=== PATIENT | male | born 1965 | race African-American/Black ===

== ENCOUNTER 2018-03-17 08:21 | Emergency (ER) | payer OTHER ==
[2018-03-17] MEDS ORDERED: Furosemide 40 MG/4 ML VIAL ONE (08:39)
[2018-03-17] MEDS ORDERED: Nitroglycerin 0.4 MG TAB (25 Tab Bottle) ONE (08:39)
[2018-03-17] MEDS ORDERED: Nitroglycerin 2% Ointment 1 INCH/1 GM Packet ONE (08:39)
[2018-03-17 08:49] LABS: #Basophils 0.1 thou/uL (0.0-0.2); #Eosinphils 0.3 thou/uL (0.0-0.7); #Lymphocytes 2.3 thou/uL (1.20-3.40); #Monocytes 0.6 thou/uL (0.11-0.59); #Neutrophils 7.1 thou/uL (1.40-6.50); %Basophils 0.7 % (0.0-1.0); %Eosinophils 2.6 % (0.0-10.0); %Lymphocytes 22.5 % (21.0-51.0); %Neutrophils 68.1 % (42.0-75.0); Hemoglobin 13.6 g/dL (14.0-18.0); Mean Corpuscular HGB CONC 31.3 g/dL (32.0-36.0); Mean Corpuscular Hemoglobin 25.2 pg (27.0-31.0); Mean Corpuscular Volume 80.4 fL (78.0-98.0); Mean Platelet Volume 10.1 fL (7.4-10.4); Platelet Count 181 thou/uL (130-400); RBC Distribution Width 15.6 % (11.5-14.5); Red Blood Cell (RBC) Count 5.41 mill/uL (4.70-6.10); White Blood Cell (WBC) Count 10.4 thou/uL (4.8-10.8)
[2018-03-17 09:09] LABS: ALT (SGPT) 17 U/L (8-55); AST (SGOT) 16 U/L (5-34); Albumin 3.6 g/dL (3.5-5.0); Alkaline Phosphatase 133 U/L (40-150); Anion Gap 11 mmol/L (10-20); BUN (Urea Nitrogen) 17 mg/dL (8.4-25.7); Bilirubin, Total 0.7 mg/dL (0.2-1.2); CK (CPK) 88 U/L (30-200); Calc. Creatinine Clearance 0 mL/min (70-130); Carbon Dioxide 27 mmol/L (22-29); Chloride 106 mmol/L (98-107); Estimated GFR-MDRD 61; Globulin 3.9 g/dL (2.4-3.5); Glucose 107 mg/dL (70-105); Lipase 17 U/L (8-78); Potassium 3.6 mmol/L (3.5-5.1); Protein, Total 7.5 g/dL (6.0-8.3); Sodium 140 mmol/L (136-145)
[2018-03-17 09:10] LABS: CKMB 1.4 ng/mL (0-6.6); Troponin I 0.027 ng/mL (< 0.028)
--- NOTE | 2018-03-17 10:08 | RAD ---
FRONTAL VIEW CHEST: COMPARISON: No prior comparison. INDICATION: Dyspnea. FINDINGS: Cardiac silhouette is enlarged and there is prominence of pulmonary vasculature. There is a left sub clavian approach AICD in place. Interstitial prominence of each lung is present. No significant eff usion or discrete pneumothorax. IMPRESSION: Findings most consistent with decompensated congestive heart failure. Recommend continued imaging fo llowup. POS: [facility]
== END 2018-03-17 10:21 | disposition home or self-care (01) ==
LOC: ERS 08:21
DX: I11.0 Hypertensive heart disease with heart failure (principal); I50.9 Heart failure, unspecified; M10.9 Gout, unspecified; I48.91 Unspecified atrial fibrillation; E78.5 Hyperlipidemia, unspecified; Z79.899 Other long term (current) drug therapy; Z79.891 Long term (current) use of opiate analgesic
CPT/HCPCS: 71045; 80053; 82553; 83690; 83880; 84484; 85025; 93005; 96374; J1940

== ENCOUNTER 2018-03-18 08:43 | Inpatient (IN) | payer OTHER ==
[2018-03-18] MEDS ORDERED: Furosemide 40 MG/4 ML VIAL ONE (09:04)
[2018-03-18] MEDS ORDERED: Nitroglycerin 2% Ointment 1 INCH/1 GM Packet ONE (09:04)
[2018-03-18] MEDS ORDERED: Nitroglycerin 0.4 MG TAB (25 Tab Bottle) ONE (09:04)
[2018-03-18 09:22] LABS: #Eosinphils 0.2 thou/uL (0.0-0.7); #Monocytes 0.5 thou/uL (0.11-0.59); #Neutrophils 6.9 thou/uL (1.40-6.50); %Basophils 0.5 % (0.0-1.0); %Eosinophils 2.3 % (0.0-10.0); %Lymphocytes 20.9 % (21.0-51.0); %Monocytes 5.5 % (0.0-10.0); %Neutrophils 70.7 % (42.0-75.0); Hemoglobin 13.1 g/dL (14.0-18.0); Mean Corpuscular HGB CONC 31.3 g/dL (32.0-36.0); Mean Corpuscular Hemoglobin 25.2 pg (27.0-31.0); Mean Corpuscular Volume 80.4 fL (78.0-98.0); Platelet Count 188 thou/uL (130-400); RBC Distribution Width 15.6 % (11.5-14.5); Red Blood Cell (RBC) Count 5.19 mill/uL (4.70-6.10); White Blood Cell (WBC) Count 9.7 thou/uL (4.8-10.8)
--- NOTE | 2018-03-18 09:31 | RAD ---
FRONTAL VIEW CHEST: COMPARISON: 03/17/18. INDICATION: Short of breath. FINDINGS: There remains prominence of the cardiac silhouette and pulmonary vasculature. Left-sided AICD is aga in seen. Patchy bilateral perihilar opacities are present. There is no significant effusion or disc rete pneumothorax. IMPRESSION: Findings indicate decompensated congestive heart failure with bilateral edema. Recommend continued i maging followup. POS: [facility]
[2018-03-18 09:40] LABS: ALT (SGPT) 15 U/L (8-55); AST (SGOT) 14 U/L (5-34); Albumin 3.3 g/dL (3.5-5.0); Alkaline Phosphatase 111 U/L (40-150); Anion Gap 9 mmol/L (10-20); BUN (Urea Nitrogen) 17 mg/dL (8.4-25.7); Bilirubin, Total 0.8 mg/dL (0.2-1.2); Calc. Creatinine Clearance 0 mL/min (70-130); Calcium 8.8 mg/dL (7.8-10.44); Carbon Dioxide 28 mmol/L (22-29); Chloride 105 mmol/L (98-107); Estimated GFR-MDRD 68; Globulin 3.6 g/dL (2.4-3.5); Glucose 106 mg/dL (70-105); Potassium 3.8 mmol/L (3.5-5.1); Protein, Total 6.9 g/dL (6.0-8.3); Sodium 138 mmol/L (136-145)
[2018-03-18 09:45] LABS: CKMB 1.2 ng/mL (0-6.6); Troponin I 0.029 ng/mL (< 0.028)
--- NOTE | 2018-03-18 11:53 | PDOC.FPRHP ---
- History of Present Illness Chief Complaint: Shortness of breath History of Present Illness: Mr. Silverman is a 52 year old male presenting to the ER from out of town with acute onset shortness of breath for the past two days. He says that the past two nights he has been awoken with shortness of breath, coughing, and wheezing. This has never happened to him before, it is worse when he lies down and better when he is sitting or standing. He has been taking his medications as directed. He also reports an episode of wrist pain/swelling two days ago, that has mostly resolved with some residual pain. He has a history of congestive heart failure diagnosed in 1999 which he is followed by a yard operator for. ED Course: CXR in ER shows b/l edema and cephalization He was given 40 mg lasix, nitro 2% gel, and sL .4 mg - History PMHx:gout, atrial fibrillation, CAD x4 stents, [place] in 1999, Stroke in 2009 w/ residual right sided weakness, hypertension, congestive heart failure diagnosed in 1999 PSHx: cardiac cath in 1999, pacemaker/defibrillator FHx:cancer in mother Social: neg TACD - Review of Systems General: denies: fever/chills, night sweats Eyes: denies: vision changes ENT: denies: nasal congestion, rhinorrhea Respiratory: reports: cough, shortness of breath, exercise intolerance. denies : congestion Cardiovascular: reports: edema, orthopnea. denies: chest pain, palpitation Gastrointestinal: denies: nausea, vomiting, diarrhea, constipation, abdominal pain Genitourinary: denies: dysuria, polyuria Skin: denies: rashes, lesions Musculoskeletal: denies: pain, tenderness, stiffness, swelling Neurological: denies: numbness, syncope, weakness - Vital signs BP: [174/119] HR: [97] RR: [21] Tmax: [98] Pox: [96]% on [RA] Wt: [131 kg] - Physical Exam Constitutional: awake, alert and oriented, other (labored breathing) HEENT: normocephalic and atraumatic, grossly normal vision, MMM Neck: supple, no bruits Chest: no-tender to palpation, no lesions Heart: normal S1/S2, no murmurs/rubs/gallops, pulses present, other ( irregularly irregular rhythm) Lungs: no respiratory distress, no retractions, other (b/l ronchi and wheeze, increased work of breathing) Abdomen: soft, non-tender Musculoskeletal: normal structure, ROM grossly normal Neurological: no focal deficit, normal sensation Skin: no rash/lesions, no jaundice Heme/Lymphatic: no unusual bruising or bleeding, no purpura Psychiatric: normal mood and affect, intact recent and remote memory FMR H&P: Results - Labs Result Diagrams: 03/18/18 09:04 03/18/18 09:04 Lab results: WBC 9.7 thou/uL (4.8-10.8) 03/18/18 09:04 Hgb 13.1 g/dL (14.0-18.0) L 03/18/18 09:04 Hct 41.8 % (42.0-52.0) L 03/18/18 09:04 MCV 80.4 fL (78.0-98.0) 03/18/18 09:04 Plt Count 188 thou/uL (130-400) 03/18/18 09:04 Neutrophils % 70.7 % (42.0-75.0) 03/18/18 09:04 Sodium 138 mmol/L (136-145) 03/18/18 09:04 Potassium 3.8 mmol/L (3.5-5.1) 03/18/18 09:04 Chloride 105 mmol/L (98-107) 03/18/18 09:04 Carbon Dioxide 28 mmol/L (22-29) 03/18/18 09:04 BUN 17 mg/dL (8.4-25.7) 03/18/18 09:04 Creatinine 1.34 mg/dL (0.6-1.3) H 03/18/18 09:04 Glucose 106 mg/dL (70-105) H 03/18/18 09:04 Calcium 8.8 mg/dL (7.8-10.44) 03/18/18 09:04 Total Bilirubin 0.8 mg/dL (0.2-1.2) 03/18/18 09:04 AST 14 U/L (5-34) 03/18/18 09:04 ALT 15 U/L (8-55) 03/18/18 09:04 Alkaline Phosphatase 111 U/L (40-150) 07/08/18 09:04 CK-MB (CK-2) 1.2 ng/mL (0-6.6) 03/18/18 09:04 B-Natriuretic Peptide 613.5 pg/mL (0-100) H 03/18/18 09:04 Serum Total Protein 6.9 g/dL (6.0-8.3) 03/18/18 09:04 Albumin 3.3 g/dL (3.5-5.0) L 03/18/18 09:04 - EKG Interpretation EKG: electronic pacemaker FMR H&P: A/P - Problem List (1) Acute exacerbation of CHF (congestive heart failure) Current Visit: Yes Status: Acute Code(s): I50.9 - HEART FAILURE, UNSPECIFIED (2) Hypertension Current Visit: Yes Status: Acute Code(s): I10 - ESSENTIAL (PRIMARY) HYPERTENSION (3) Atrial fibrillation Current Visit: Yes Status: Acute Code(s): I48.91 - UNSPECIFIED ATRIAL FIBRILLATION (4) Gout Current Visit: Yes Status: Acute Code(s): M10.9 - GOUT, UNSPECIFIED - Plan 1. Acute exacerbation of congestive heart failure - Due to increased PO fluid intake recently - EKG: electronic paced - CXR: b/l edema, repeat in AM - BNP: 631, repeat in AM - Lasix 40 mg, no salt, fluid restriction 1500 ml - TTE - obtain records from cardiology in [place] [id number] 2. Hypertension - continue home meds - consider adding hydralazine 5 mg for systolic over 170 3. Atrial fibrillation - continue home meds - monitor on telemetry 4. Gout - resolved - continue home meds FMR H&P: Upper Level - Pertinent history 52 yo AAM with PMH Heart failure with presumed reduced EF, s/p AICD/Pacemaker placement, HTN, and gout. Presents with 2-3 day hx of progressively worsening PND. [facility] and has not been following fluid restriction. States he his followed by yard operator in [facility]. Last TTE was 1 year ago. He was seen in ER last night for same problem and given lasix before discharging. States his gout flair is resolving. ER: Labs, EKG, CXR, Nitro SL, Nitro paste, ASA, labetalol. - Pertinent findings BP elevated 150-170s/ 90-110s. Otherwise WNL. GEN: NAD but becomes tachypnic with talking CV: Distant heart sounds. irregularly irregular. pulses present. no murmur or gallop noted. PULM: CTA- B labored breathing when speaking Extremities: No edema. no cyanosis. - Plan Date/Time: 03/18/18 1150 I, Ernesto Bustos MD, have evaluated this patient and agree with findings/plan as outlined by internet technology manager resident. Pertinent changes/additions are listed here. 1. Acute HF exacerbation: Lasix 40 mg BID, fluid restrict 1500 mL, daily weights , 2. Presumed HF with reduced EF: Obtain records from primary yard operator, consider cardiology consult if significant findings on evaluation, repeat TTE, resume home meds 3. Chronic A-fib: home meds, eliquis 4. HTN: home meds, PRN labetalol and hydralazine 5. Presumed CKD3: monitor BMP 6. s/p AICD/Pacemaker: See #1 and #2 7. Hx Gout: consider treatment if flair worsens with lasix. 8. Diet: HH, Low sodium fluid restrict, 9. Activity: Walking program 10. CODE: FULL 11. PPx: loly.
[2018-03-18] MEDS ORDERED: Labetalol HCl 100 MG/20 ML VIAL ONE (11:55)
[2018-03-18] MEDS ORDERED: Acetaminophen 325 MG TAB PO PRN (12:24)
[2018-03-18] MEDS ORDERED: Ondansetron ODT 4 MG TAB PO PRN (12:24)
[2018-03-18] MEDS ORDERED: hydrALAZINE 20 MG/ML VIAL SLOW IVP PRN (13:32)
[2018-03-18 13:41] VITALS: BMI 41.0
[2018-03-18] MEDS: Furosemide 40 MG TAB PO SCH (13:56)
[2018-03-18] MEDS ORDERED: Docusate 100 MG CAP PO PRN (15:10)
[2018-03-18 15:44] LABS: Troponin I 0.028 ng/mL (< 0.028)
[2018-03-18] MEDS: Carvedilol 25 MG TAB PO SCH (19:58)
[2018-03-18] MEDS: Apixaban 5 MG TAB PO SCH (19:59)
[2018-03-18] MEDS: Atorvastatin Calcium 40 MG TAB PO SCH (19:59)
[2018-03-18] MEDS: Docusate 100 MG CAP PO SCH (19:59)
[2018-03-18] MEDS: Tamsulosin HCl 0.4 MG CAP PO SCH (19:59)
[2018-03-18] MEDS ORDERED: Carvedilol 25 MG TAB PO SCH (21:00)
[2018-03-18 21:56] LABS: Hemoglobin 13.3 g/dL (14.0-18.0); Platelet Count 177 thou/uL (130-400)
[2018-03-19 04:49] LABS: Anion Gap 12 mmol/L (10-20); BUN (Urea Nitrogen) 18 mg/dL (8.4-25.7); Calc. Creatinine Clearance 154 mL/min (70-130); Calcium 8.9 mg/dL (7.8-10.44); Carbon Dioxide 25 mmol/L (22-29); Chloride 106 mmol/L (98-107); Estimated GFR-MDRD 85; Glucose 107 mg/dL (70-105); Potassium 3.4 mmol/L (3.5-5.1); Sodium 140 mmol/L (136-145); Uric Acid 9.4 mg/dL (3.5-7.2)
[2018-03-19 05:42] LABS: Digoxin Less than 0.15 ng/mL (0.8-2.0)
[2018-03-19] MEDS ORDERED: Potassium Chloride 20 MEQ TAB PO SCH (06:30)
[2018-03-19] MEDS: Colchicine 0.6 MG TAB PO SCH (07:48)
[2018-03-19] MEDS: Losartan 25 MG TAB PO SCH (07:48)
[2018-03-19] MEDS: Carvedilol 25 MG TAB PO SCH ×2 (07:48→20:58)
[2018-03-19] MEDS: Allopurinol 100 MG TAB PO SCH (07:48)
[2018-03-19] MEDS: valACYclovir 500 MG TAB PO SCH (07:48)
[2018-03-19] MEDS: Apixaban 5 MG TAB PO SCH ×2 (07:49→20:57)
[2018-03-19] MEDS: Digoxin 0.25 MG TAB PO SCH (07:49)
[2018-03-19] MEDS: Docusate 100 MG CAP PO SCH ×2 (07:49→20:58)
[2018-03-19] MEDS: Furosemide 40 MG TAB PO SCH (07:49)
[2018-03-19] MEDS ORDERED: Non-Formulary Item 1 EACH (Losartan Potassium [Cozaar] 50 MG) PO SCH (09:00)
[2018-03-19] MEDS ORDERED: Amlodipine 5 MG TAB PO SCH ×2 (09:00→13:00)
[2018-03-19] MEDS ORDERED: Ergocalciferol 1.25 MG(50,000 UNITS) CAP PO SCH (09:00)
--- NOTE | 2018-03-19 09:05 | PDOC.FM ---
- Subjective Subjective: Patient reports that he is feeling much better this AM. He reports that his breathing has improved where now he only gets SOB when he starts moving around, but he is able to lay flat now without problems breathing. He denies any chest pain. - Objective MAR Reviewed: Yes Vital Signs & Weight: Vital Signs (12 hours) Temp Pulse Resp BP Pulse Ox 03/19/18 08:00 98.2 F 99 18 96 03/19/18 07:49 99 03/19/18 07:25 98.2 F 99 18 151/92 H 96 03/19/18 04:00 98.4 F 95 16 164/94 H 93 L 03/19/18 00:00 97.6 F 100 14 141/78 H 94 L Weight Weight 136.531 kg I&O: 03/18/18 03/19/18 03/20/18 06:59 06:59 06:59 Intake Total 600 Output Total 550 Balance 50 Result Diagrams: 03/18/18 21:46 03/19/18 04:08 <Rosalee Soto - Last Filed: 03/19/18 09:03> - Objective Vital Signs & Weight: Vital Signs (12 hours) Temp Pulse Pulse Pulse Resp BP BP 03/19/18 13:31 88 184/109 H 03/19/18 11:47 97.9 F 92 18 03/19/18 09:13 86 94 140/80 03/19/18 08:00 98.2 F 99 18 03/19/18 07:49 99 03/19/18 07:25 98.2 F 99 18 03/19/18 04:00 98.4 F 95 16 BP BP BP Pulse Ox Pulse Ox Pulse Ox 03/19/18 13:31 03/19/18 11:47 158/100 H 97 03/19/18 09:13 157/91 H 95 94 L 03/19/18 08:00 96 03/19/18 07:49 03/19/18 07:25 151/92 H 96 03/19/18 04:00 164/94 H 93 L Weight Weight 136.531 kg I&O: 03/18/18 03/19/18 03/20/18 06:59 06:59 06:59 Intake Total 600 Output Total 550 Balance 50 Result Diagrams: 03/18/18 21:46 03/19/18 04:08 <Silvino Pretty - Last Filed: 03/19/18 13:53> Phys Exam - Physical Examination Constitutional: NAD HEENT: moist MMs, sclera anicteric Respiratory: no wheezing, no rales, no rhonchi, clear to auscultation bilateral Cardiovascular: RRR, no significant murmur, no rub Gastrointestinal: soft, non-tender, no distention, positive bowel sounds Musculoskeletal: no edema, pulses present Neurological: non-focal, moves all 4 limbs Psychiatric: normal affect, A&O x 3 Skin: normal turgor, cap refill <2 seconds <Rosalee Soto - Last Filed: 03/19/18 09:03> Dx/Plan (1) Acute on chronic HFrEF (heart failure with reduced ejection fraction) Code(s): I50.23 - ACUTE ON CHRONIC SYSTOLIC (CONGESTIVE) HEART FAILURE Status : Acute (2) Atrial fibrillation Code(s): I48.91 - UNSPECIFIED ATRIAL FIBRILLATION Status: Acute QualifierTitle: Atrial fibrillation type: paroxysmal Qualified Code(s): I48.0 - Paroxysmal atrial fibrillation (3) Gout Code(s): M10.9 - GOUT, UNSPECIFIED Status: Acute QualifierTitle: Gout site: unspecified site Chronicity: chronic (4) Hypertension Code(s): I10 - ESSENTIAL (PRIMARY) HYPERTENSION Status: Acute QualifierTitle: Hypertension type: essential hypertension Qualified Code( s): I10 - Essential (primary) hypertension - Plan Plan: Acute on Chronic HFrEF exacerbation Likely due to increased PO fluid intake recently. CXR: b/l edema, repeat in AM. BNP: 631, 340. Echo showed EF 20-25% - Lasix 40 - fluid restriction 1500 ml - Strict I/O's - obtain records from cardiology in [place] Hypertension BP's have been elevated to 140s/70s-170s/100s - continue home losartan and carvedilol - consider increasing losartan vs adding CCB Atrial fibrillation - continue home meds - monitor on telemetry Gout - resolved - continue home meds <Rosalee Soto - Last Filed: 03/19/18 09:03> Attending Addendum - Attending Addendum Date/Time: 03/19/18 1350 I personally evaluated the patient and discussed the management with Dr. Soto I agree with the History, Examination, Assessment and Plan documented above with any addition or exceptions noted below. Need to get back to dry weight Heart rate controlled. <Silvino Pretty - Last Filed: 03/19/18 13:53>
[2018-03-19] MEDS: Furosemide 40 MG/4 ML VIAL SLOW IVP SCH (13:30)
[2018-03-19] MEDS: Tamsulosin HCl 0.4 MG CAP PO SCH (20:57)
[2018-03-19] MEDS: Atorvastatin Calcium 40 MG TAB PO SCH (20:58)
[2018-03-20] MEDS ORDERED: Melatonin 3 MG TAB PO SCH (01:45)
[2018-03-20 05:16] LABS: Anion Gap 14 mmol/L (10-20); BUN (Urea Nitrogen) 19 mg/dL (8.4-25.7); Calc. Creatinine Clearance 148 mL/min (70-130); Calcium 9.2 mg/dL (7.8-10.44); Carbon Dioxide 24 mmol/L (22-29); Chloride 103 mmol/L (98-107); Estimated GFR-MDRD 82; Glucose 96 mg/dL (70-105); Potassium 3.6 mmol/L (3.5-5.1); Sodium 137 mmol/L (136-145)
[2018-03-20] MEDS: Furosemide 40 MG/4 ML VIAL SLOW IVP SCH ×2 (05:48→13:23)
--- NOTE | 2018-03-20 08:22 | PDOC.FM ---
- Subjective Subjective: Patient reports that his breathing is much improved. He says he was able to walk in the hallway around the loop yesterday and when he got back to his room he wasn't winded at all. The patient reports being able to sleep laying down without any SOB. He denies any swelling in his legs. He reports adherence to the fluid restriction and that he has been urinating frequently after getting the lasix. - Objective MAR Reviewed: Yes Vital Signs & Weight: Vital Signs (12 hours) Temp Pulse Resp BP Pulse Ox 03/20/18 04:00 98.2 F 97 20 141/94 H 95 03/20/18 00:00 97.3 F L 99 20 138/88 96 03/19/18 20:58 98.9 F 90 18 158/100 H 95 Weight Weight 135.579 kg I&O: 03/19/18 03/20/18 03/21/18 06:59 06:59 06:59 Intake Total 600 1440 Output Total 550 3650 Balance 50 -2210 Result Diagrams: 03/18/18 21:46 03/20/18 03:52 <Rosalee Soto - Last Filed: 03/20/18 08:21> - Objective Vital Signs & Weight: Vital Signs (12 hours) Temp Pulse Resp BP BP Pulse Ox 03/20/18 11:13 97.6 F 95 18 122/82 93 L 03/20/18 08:31 97 03/20/18 08:30 97 03/20/18 08:00 97.0 F L 97 16 148/76 H 92 L 03/20/18 04:00 98.2 F 97 20 141/94 H 95 Weight Weight 135.579 kg I&O: 03/19/18 03/20/18 03/21/18 06:59 06:59 06:59 Intake Total 600 1440 Output Total 550 3650 Balance 50 -2210 Result Diagrams: 03/18/18 21:46 03/20/18 03:52 <Jai Guthrie - Last Filed: 03/20/18 12:44> Phys Exam - Physical Examination Constitutional: NAD HEENT: moist MMs Respiratory: no wheezing, no rales, no rhonchi, clear to auscultation bilateral Cardiovascular: RRR, no significant murmur, no rub Gastrointestinal: soft, non-tender, no distention, positive bowel sounds Musculoskeletal: no edema, pulses present Neurological: non-focal, moves all 4 limbs Psychiatric: normal affect, A&O x 3 Skin: normal turgor, cap refill <2 seconds <Rosalee Soto - Last Filed: 03/20/18 08:21> Dx/Plan (1) Acute on chronic HFrEF (heart failure with reduced ejection fraction) Code(s): I50.23 - ACUTE ON CHRONIC SYSTOLIC (CONGESTIVE) HEART FAILURE Status : Acute (2) Atrial fibrillation Code(s): I48.91 - UNSPECIFIED ATRIAL FIBRILLATION Status: Acute QualifierTitle: Atrial fibrillation type: paroxysmal Qualified Code(s): I48.0 - Paroxysmal atrial fibrillation (3) Gout Code(s): M10.9 - GOUT, UNSPECIFIED Status: Acute QualifierTitle: Gout site: unspecified site Chronicity: chronic (4) Hypertension Code(s): I10 - ESSENTIAL (PRIMARY) HYPERTENSION Status: Acute QualifierTitle: Hypertension type: essential hypertension Qualified Code( s): I10 - Essential (primary) hypertension - Plan Plan: Acute on Chronic HFrEF exacerbation Likely due to increased PO fluid intake recently over 14 of March. CXR: b/l edema. BNP: 631, 340. Echo showed EF 20-25% Tele has showed v-paced with HR in 80s-90s overnight - Lasix 40mg IV BID - fluid restriction 1500 ml - Strict I/O's, daily weights - obtain records from cardiology in [place] - Cont home carvedilol and losartan Hypertension BP's have been elevated to 140s/80s-180s/100s - continue home losartan and carvedilol - Added amlodipine for better control Atrial fibrillation - continue home meds - monitor on telemetry Gout - resolved - continue home meds <Rosalee Soto - Last Filed: 03/20/18 08:21> Attending Addendum - Attending Addendum Date/Time: 03/20/18 1243 I personally evaluated the patient and discussed the management with Dr. Soto. I agree with and repeated the History, Examination, Assessment and Plan documented above with any addition or exceptions noted below. Pt improving. Acute on chronic HFrEF - continue diuresis. Plan to add aldactone after extensive discussion today. Monitor BP. Hopeful d/c tomorrow. <Jai Guthrie - Last Filed: 03/20/18 12:44>
[2018-03-20] MEDS: Docusate 100 MG CAP PO SCH ×2 (08:30→20:30)
[2018-03-20] MEDS: Amlodipine 5 MG TAB PO SCH (08:30)
[2018-03-20] MEDS: Allopurinol 100 MG TAB PO SCH (08:30)
[2018-03-20] MEDS: Colchicine 0.6 MG TAB PO SCH (08:30)
[2018-03-20] MEDS: Carvedilol 25 MG TAB PO SCH ×2 (08:31→20:30)
[2018-03-20] MEDS: Digoxin 0.25 MG TAB PO SCH (08:31)
[2018-03-20] MEDS: Losartan 25 MG TAB PO SCH (08:31)
[2018-03-20] MEDS: Apixaban 5 MG TAB PO SCH ×2 (08:31→20:30)
[2018-03-20] MEDS: valACYclovir 500 MG TAB PO SCH (08:35)
--- NOTE | 2018-03-20 11:55 | PQF ---
CLINICAL DOCUMENTATION IMPROVEMENT CLARIFICATION FORM: ICD-10 Updated PLEASE DO AN ADDENDUM TO THE PROGRESS NOTE WITH ANY DOCUMENTATION UPDATES OR ADDITIONS AND CARRY THROUGH TO DC SUMMARY. THANK YOU. DATE: 03/20 ATTN: DR. ABUNDIO AYOUB/ DR. EMILY AGUIAR Please exercise your independent, professional judgment in responding to the clarification form. Clinical indicators are provided on the bottom of this form for your review. Please check appropriate box(s): BMI > 40 with associated diagnosis of: (check one) [ x] Morbid (Severe) Obesity [x ] Due to excess calories [ ] Obesity [ ] Other diagnosis [ ] Unable to determine For continuity of documentation, please document condition throughout progress notes and discharge summary. Thank You. BMI < 19 Under weight 19 - 24.9 Healthy 25.0 - 29.9 Slightly Overweight 30.0 - 34.9 Obese 35.0 - 39.9 Severely Obese 40.0 and Over Morbidly Obese CLINICAL INDICATORS - SIGNS / SYMPTOMS / LABS BMI: 40.5 RISK FACTORS: HTN SYSTOLIC CHF HX CVA W/R SIDED WEAKNESS TREATMENTS: HH DIET W/1500 ML/DAY FLUID RESTRICTION CARDIAC REHAB EVALUATION THANK YOU! Jaye (This form is maintained as a part of the permanent medical record) 2014 [employer]. All Rights Reserved Jaye Sierra RN, BSN [email or web address] Office: [phone] [facility] CENTERNeptali
[2018-03-20] MEDS ORDERED: Spironolactone 25 MG TAB PO SCH (12:30)
[2018-03-20] MEDS: Atorvastatin Calcium 40 MG TAB PO SCH (20:30)
[2018-03-20] MEDS: Tamsulosin HCl 0.4 MG CAP PO SCH (20:45)
[2018-03-21] MEDS: Furosemide 40 MG/4 ML VIAL SLOW IVP SCH (05:04)
[2018-03-21 06:06] LABS: Anion Gap 13 mmol/L (10-20); BUN (Urea Nitrogen) 21 mg/dL (8.4-25.7); Calc. Creatinine Clearance 121 mL/min (70-130); Calcium 9.3 mg/dL (7.8-10.44); Carbon Dioxide 29 mmol/L (22-29); Chloride 100 mmol/L (98-107); Estimated GFR-MDRD 66; Glucose 102 mg/dL (70-105); Potassium 3.6 mmol/L (3.5-5.1); Sodium 138 mmol/L (136-145)
[2018-03-21 06:29] LABS: Hemoglobin 14.5 g/dL (14.0-18.0); Platelet Count 205 thou/uL (130-400)
[2018-03-21] MEDS ORDERED: Spironolactone 25 MG TAB PO SCH (08:00)
--- NOTE | 2018-03-21 08:52 | PDOC.FM ---
- Subjective Subjective: Patient doing well this AM. He denies SOB, AUGUSTIN, orthopnea, LE swelling. He has been urinating frequently with the diuretics. He denies any other complaints or chest pain. - Objective MAR Reviewed: Yes Vital Signs & Weight: Vital Signs (12 hours) Temp Pulse Resp BP Pulse Ox 03/21/18 04:00 97.7 F 89 18 133/87 96 Weight Weight 135.08 kg I&O: 03/20/18 03/21/18 03/22/18 06:59 06:59 06:59 Intake Total 1440 1260 Output Total 3650 2650 Balance -2210 -1390 Result Diagrams: 03/21/18 05:25 03/21/18 05:25 <Rosalee Soto - Last Filed: 03/21/18 08:50> - Objective Vital Signs & Weight: Vital Signs (12 hours) Temp Pulse Resp BP BP Pulse Ox 03/21/18 09:15 98.1 F 107 H 18 96 03/21/18 09:13 107 H 161/118 H 03/21/18 09:07 98.1 F 107 H 18 96 03/21/18 04:00 97.7 F 89 18 133/87 96 Weight Weight 135.08 kg I&O: 03/20/18 03/21/18 03/22/18 06:59 06:59 06:59 Intake Total 1440 1260 480 Output Total 3650 2650 1000 Balance -2210 -1390 -520 Result Diagrams: 03/21/18 05:25 03/21/18 05:25 <Jai Guthrie - Last Filed: 03/21/18 13:07> Phys Exam - Physical Examination Constitutional: NAD HEENT: moist MMs Respiratory: no wheezing, no rales, no rhonchi, clear to auscultation bilateral Cardiovascular: RRR, no significant murmur, no rub Gastrointestinal: soft, non-tender, no distention, positive bowel sounds Musculoskeletal: no edema, pulses present Neurological: non-focal, moves all 4 limbs Lymphatic: no nodes Psychiatric: normal affect, A&O x 3 <Rosalee Soto - Last Filed: 03/21/18 08:50> Dx/Plan (1) Acute on chronic HFrEF (heart failure with reduced ejection fraction) Code(s): I50.23 - ACUTE ON CHRONIC SYSTOLIC (CONGESTIVE) HEART FAILURE Status : Acute (2) Atrial fibrillation Code(s): I48.91 - UNSPECIFIED ATRIAL FIBRILLATION Status: Acute QualifierTitle: Atrial fibrillation type: paroxysmal Qualified Code(s): I48.0 - Paroxysmal atrial fibrillation (3) Gout Code(s): M10.9 - GOUT, UNSPECIFIED Status: Acute QualifierTitle: Gout site: unspecified site Chronicity: chronic (4) Hypertension Code(s): I10 - ESSENTIAL (PRIMARY) HYPERTENSION Status: Acute QualifierTitle: Hypertension type: essential hypertension Qualified Code( s): I10 - Essential (primary) hypertension (5) Morbid obesity due to excess calories Code(s): E66.01 - MORBID (SEVERE) OBESITY DUE TO EXCESS CALORIES Status: Acute - Plan Plan: Acute on Chronic HFrEF exacerbation Likely due to increased PO fluid intake recently over 14 of March. CXR: b/l edema. BNP: 631, 340. Echo showed EF 20-25% Tele has showed v-paced with HR in 80s-90s overnight - Will transition back to torsemide PO - fluid restriction 1500 ml - Strict I/O's, daily weights - Cont home carvedilol and losartan - Added spironolactone Hypertension BP's have been much better controlled - continue home losartan and carvedilol Atrial fibrillation - continue home meds - monitor on telemetry Gout - resolved - continue home meds Morbid Obesity - Director Product on diet and exercise Dispo: d/c home today with f/u with cardiology <Rosalee Soto - Last Filed: 03/21/18 08:50> Attending Addendum - Attending Addendum Date/Time: 03/21/18 5226 I personally evaluated the patient and discussed the management with Dr. Soto. I agree with and repeated the History, Examination, Assessment and Plan documented above with any addition or exceptions noted below. Patient doing very well. Discussed need to follow up with PCP shortly to recheck his electrolytes and kidneys, which we discussed extensively today, and he desires to go. <Jai Guthrie - Last Filed: 03/21/18 13:07>
[2018-03-21 09:10] VITALS: TEMP 98.1
[2018-03-21] MEDS: Colchicine 0.6 MG TAB PO SCH (09:12)
[2018-03-21] MEDS: Carvedilol 25 MG TAB PO SCH (09:12)
[2018-03-21] MEDS: Amlodipine 5 MG TAB PO SCH (09:13)
[2018-03-21] MEDS: Losartan 25 MG TAB PO SCH (09:13)
[2018-03-21] MEDS: Docusate 100 MG CAP PO SCH (09:13)
[2018-03-21] MEDS: Allopurinol 100 MG TAB PO SCH (09:13)
[2018-03-21] MEDS: Apixaban 5 MG TAB PO SCH (09:13)
[2018-03-21] MEDS: valACYclovir 500 MG TAB PO SCH (09:13)
[2018-03-21] MEDS: Digoxin 0.25 MG TAB PO SCH (09:13)
[2018-03-21 09:14] VITALS: BP 161/118
--- NOTE | 2018-03-22 21:39 | DIS-2 ---
DATE OF ADMISSION: 03/18/2018 DATE OF DISCHARGE: 03/21/2018 ADMITTING ATTENDING: Jenna Mares M.D. DISCHARGE ATTENDING: Jai Guthrie M.D. ADMITTING RESIDENT: Paul Bosch D.O. DISCHARGE RESIDENT: Rosalee Soto M.D. CONSULTATIONS: None. PROCEDURES: None. IMAGING: Echocardiogram showed EF of 20% to 25%. Chest x-ray showed patchy bilateral perihilar opac ities and left-sided AICD seen. PRIMARY DIAGNOSES: 1. Acute on chronic heart failure with reduced ejection fraction exacerbation. 2. Acute kidney injury. 3. Hypokalemia. 4. Indeterminate troponins. SECONDARY DIAGNOSES: 1. Hypertension. 2. Gout. 3. Paroxysmal atrial fibrillation. 4. Morbid obesity due to excess calories. DISCHARGE MEDICATIONS: 1. Tylenol with codeine No. 4, 300-60 mg 1 tablet p.o. q.6 hours p.r.n. pain. 2. Allopurinol 100 mg p.o. daily. 3. Eliquis 5 mg p.o. b.i.d. 4. Atorvastatin 40 mg p.o. at bedtime. 5. Carvedilol 25 mg p.o. b.i.d. 6. Vitamin D3 of 50,000 units p.o. q.7 days. 7. Colchicine 0.6 mg p.o. daily. 8. Digoxin 250 mcg p.o. daily. 9. Docusate 100 mg p.o. b.i.d. p.r.n. constipation. 10. Losartan 50 mg p.o. daily. 11. Naproxen 375 mg p.o. b.i.d. p.r.n. pain. 12. Spironolactone 12.5 mg p.o. q.a.m. with meals. 13. Tamsulosin 0.4 mg p.o. at bedtime. 14. Torsemide 20 mg p.o. daily. 15. Valtrex 1 gram p.o. daily. DISCONTINUED MEDICATIONS: None. HISTORY OF PRESENT ILLNESS AND HOSPITAL COURSE: This is a 52-year-old male with past medical history of heart failure with reduced ejection fraction with a pacemaker and defibrillator in place, who pre sented to the ER complaining of orthopnea, dyspnea on exertion. The patient was found to be in a hea rt failure exacerbation on exam with chest x-ray findings consistent with congestive heart failure ex acerbation. The patient had been drinking more fluid over 03/14/2018 and reported about a 7-10 pound weight gain over the past week. The patient was started on Lasix for diuresis and was diuresed, los t about a kilogram and a half, throughout his hospitalization reported symptom improvement. The azul ent also initially had an indeterminate troponin that trended down. The patient also initially had a n elevated creatinine of 1.34, however, this trended down as well. The patient's BNP was initially 6 13.5. The patient had initial elevated blood pressures to 170s-180s and he was started on spironolac tone. This improved his blood pressures and was for treatment of his heart failure. The patient's e cho came back with an ejection fraction of 20% to 25%. 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 DISPOSITION: Stable. DISCHARGE INSTRUCTIONS: 1. Location: Home. 2. Diet: Heart healthy and fluid restriction to 1500 mL. 3. Activity: As tolerated. 4. Followup: Follow up with his primary care physician in [place] and his rag production worker in [place] jess soria 2 weeks.
== END 2018-03-21 10:48 | disposition home or self-care (01) | DRG 291 ==
LOC: ERS 08:43 → 2NO 13:05
PROVIDERS: ADMIT Family Medicine; ATTEND Family Medicine
DX: I13.0 Hypertensive heart and chronic kidney disease with heart failure and stage 1 through stage 4 chronic kidney disease, or unspecified chronic kidney disease (principal); I50.23 Acute on chronic systolic (congestive) heart failure; Z68.41 Body mass index [BMI] 40.0-44.9, adult; I69.351 Hemiplegia and hemiparesis following cerebral infarction affecting right dominant side; N18.3 Chronic kidney disease, stage 3 (moderate); I48.2 Chronic atrial fibrillation; I25.10 Atherosclerotic heart disease of native coronary artery without angina pectoris; E66.01 Morbid (severe) obesity due to excess calories; M10.9 Gout, unspecified; I25.2 Old myocardial infarction; Z95.810 Presence of automatic (implantable) cardiac defibrillator; Z95.5 Presence of coronary angioplasty implant and graft
CPT/HCPCS: 36415; 36416; 71045; 80048; 80053; 80162; 82553; 83880; 84484; 84550; 85014; 85018; 85025; 85049; 93005; 93306; 93798; 96374; 96375; A4216; J1940